=== PATIENT | male | born 1955 | race Caucasian/White ===

== ENCOUNTER 2018-10-01 06:23 | Day surgery (SDC) | payer OTHER ==
[~2018-10-01 06:23] MED LIST: CEFAZOLIN 2 GM/50 ML (PMX) 50 ML IVPB; SOD CHLORIDE 0.9% 1,000 ML IV
[2018-10-01] MEDS ORDERED: SOD CHLORIDE 0.9% 1,000 ML IV (06:30)
[2018-10-01] MEDS ORDERED: CEFAZOLIN 2 GM/50 ML (PMX) 50 ML IVPB (06:30)
[2018-10-01] MEDS ORDERED: NEOSTIGMINE 3 MG/3 ML SYRINGE (07:00)
[2018-10-01] MEDS ORDERED: BUPIVACAINE 0.25% (MPF) 30 ML INJ (08:52)
[2018-10-01] MEDS ORDERED: ROCURONIUM 50 MG INJ (08:57)
[2018-10-01] MEDS ORDERED: CEFAZOLIN 1 GM INJ (08:57)
[2018-10-01] MEDS ORDERED: ROPIVACAINE 0.5 % 30 ML VIAL (08:57)
[2018-10-01] MEDS ORDERED: PROPOFOL 20 ML (08:57)
[2018-10-01] MEDS ORDERED: GLYCOPYRROLATE 1 MG INJ (08:57)
[2018-10-01] MEDS ORDERED: METOCLOPRAMIDE 10 MG INJ (08:57)
[2018-10-01] MEDS ORDERED: ONDANSETRON 4 MG INJ (08:57)
[2018-10-01] MEDS ORDERED: HYDROmorphONE 1 MG/5 ML IV SYRINGE IV ×2 (09:00)
[2018-10-01] MEDS ORDERED: DIPHENHYDRAMINE 50 MG INJ IV (09:00)
[2018-10-01] MEDS ORDERED: hydrALAzine 20 MG INJ IV (09:00)
[2018-10-01] MEDS ORDERED: LABETALOL HCL 20MG INJ IV (09:00)
[2018-10-01] MEDS ORDERED: OXYCODONE/ACETAMINOPHEN (5/325) TAB PO ×2 (09:00)
[2018-10-01] MEDS ORDERED: MIDAZOLAM 1 MG/ML 2 ML INJ (09:01)
[2018-10-01] MEDS ORDERED: FENTAnyl 50 MCG/ML VIAL (09:01)
[2018-10-01] MEDS: CEFAZOLIN 2 GM/50 ML (PMX) 50 ML IVPB (09:29)
[2018-10-01] MEDS: HYDROmorphONE 1 MG/5 ML IV SYRINGE IV ×2 (10:23→10:29)
[2018-10-01] MEDS: MEPERIDINE 25 MG INJ IV (10:28)
[2018-10-01] MEDS: ONDANSETRON 4 MG INJ IV (10:29)
[2018-10-01] MEDS: HYDROCODONE/APAP (5/325) TAB PO ×2 (11:22→12:30)
[2018-10-01] MEDS ORDERED: METOPROLOL 5 MG INJ (11:48)
== END 2018-10-01 13:21 | disposition home or self-care (01) ==
LOC: SDS 06:23
DX: K40.30 Unilateral inguinal hernia, with obstruction, without gangrene, not specified as recurrent (principal)
CPT/HCPCS: 49507